=== PATIENT | female | born 1950 ===

== ENCOUNTER 2023-11-18 06:00 | Outpatient (RCR) | payer MEDICARE, OTHER, SELFPAY | END 2023-12-06 23:59 | disposition home or self-care (01) | LOC: TST 06:00 | DX: I69.320 Aphasia following cerebral infarction (principal); I10 Essential (primary) hypertension; I48.21 Permanent atrial fibrillation | CPT/HCPCS: 92507; 92523 ==

== ENCOUNTER 2023-12-07 06:30 | Outpatient (RCR) | payer MEDICARE, OTHER, SELFPAY | END 2024-01-05 23:59 | disposition home or self-care (01) | LOC: TST 06:30 | DX: I69.320 Aphasia following cerebral infarction (principal) | CPT/HCPCS: 92507 ==

== ENCOUNTER 2024-01-06 06:00 | Outpatient (RCR) | payer MEDICARE, OTHER, SELFPAY | END 2024-02-05 23:59 | disposition home or self-care (01) | LOC: TST 06:00 | DX: I69.320 Aphasia following cerebral infarction (principal); I10 Essential (primary) hypertension; I48.21 Permanent atrial fibrillation | CPT/HCPCS: 92507 ==

== ENCOUNTER 2024-02-06 06:30 | Outpatient (RCR) | payer MEDICARE, OTHER, SELFPAY | END 2024-03-06 23:55 | disposition home or self-care (01) | LOC: TST 06:30 | DX: I63.9 Cerebral infarction, unspecified (principal) | CPT/HCPCS: 92507 ==

== ENCOUNTER 2024-03-07 06:30 | Outpatient (RCR) | payer MEDICARE, OTHER, SELFPAY | END 2024-04-06 23:55 | disposition home or self-care (01) | LOC: TST 06:30 | DX: I69.320 Aphasia following cerebral infarction (principal) | CPT/HCPCS: 92507 ==

== ENCOUNTER 2024-04-07 06:30 | Outpatient (RCR) | payer MEDICARE, OTHER, SELFPAY | END 2024-05-07 23:59 | disposition home or self-care (01) | LOC: TST 06:30 | DX: I69.320 Aphasia following cerebral infarction (principal) | CPT/HCPCS: 92507 ==

== ENCOUNTER 2024-05-08 06:30 | Outpatient (RCR) | payer MEDICARE, OTHER, SELFPAY | END 2024-06-04 23:59 | disposition home or self-care (01) | LOC: TST 06:30 | DX: I69.320 Aphasia following cerebral infarction (principal) | CPT/HCPCS: 92507 ==

== ENCOUNTER 2024-06-05 06:00 | Outpatient (RCR) | payer MEDICARE, OTHER, SELFPAY | END 2024-07-05 23:59 | disposition home or self-care (01) | LOC: TST 06:00 | PROVIDERS: Visit Provider Student in an Organized Health Care Education/Training Program | DX: I63.9 Cerebral infarction, unspecified (principal) | CPT/HCPCS: 92507 ==

== ENCOUNTER 2024-07-06 05:00 | Outpatient (RCR) | payer MEDICARE, OTHER, SELFPAY | END 2024-08-04 23:59 | disposition home or self-care (01) | LOC: TST 05:00 | DX: I63.9 Cerebral infarction, unspecified (principal) | CPT/HCPCS: 92507 ==

== ENCOUNTER 2024-08-05 05:00 | Outpatient (RCR) | payer MEDICARE, OTHER, SELFPAY | END 2024-09-04 23:59 | disposition home or self-care (01) | LOC: TST 05:00 | PROVIDERS: Visit Provider Student in an Organized Health Care Education/Training Program | DX: I63.9 Cerebral infarction, unspecified (principal) | CPT/HCPCS: 92507 ==

== ENCOUNTER 2024-09-05 05:00 | Outpatient (RCR) | payer MEDICARE, OTHER, SELFPAY | END 2024-10-04 23:59 | disposition home or self-care (01) | LOC: TST 05:00 | PROVIDERS: Visit Provider Student in an Organized Health Care Education/Training Program | DX: I63.9 Cerebral infarction, unspecified (principal) | CPT/HCPCS: 92507 ==

== ENCOUNTER 2024-11-05 06:30 | Outpatient (RCR) | payer MEDICARE, OTHER, SELFPAY | END 2024-11-23 15:14 | disposition home or self-care (01) | LOC: TST 06:30 | PROVIDERS: Visit Provider Student in an Organized Health Care Education/Training Program | DX: I63.9 Cerebral infarction, unspecified (principal) | CPT/HCPCS: 92507 ==